=== PATIENT | female | born 1940 | race Caucasian/White ===

== ENCOUNTER 2022-05-16 10:49 | Emergency (ER) | payer OTHER ==
--- OUTSIDE RECORDS SUMMARY | 2022-05-16 10:52 | XMS REPORT | Continuity of Care Document ---
:[address] [facility] Address [address] [place] [address] Dr. Tirado [address] [place] [id number] Care Team Providers Name Role Phone [email or web address] Attending Clinician Unavailable [email or web address] Admitting Clinician Unavailable Payers Payer Name Policy Type Policy Number Effective Date Expiration Date S elly MEDICARE B-[place]: [id number] 2003 [employer] 00:00:00 [employer] (INDEMNITY) [id number] 2002 00:00:00 Problems This patient has no known problems. Allergies, Adverse Reactions, Alerts Allergy Allergy Status Severity Reaction(s) Onset Inactive Treating Comm ents Source Name Type Date Date Clinician Erythrom Allergy Active [facility] Neomycin Allergy [facility] Nickel Allergy Active [facility] Medications Ordered Filled Start Stop Current Ordering Indication Dosage Frequency Signature Comments Components Source Medication Medication Date Date Medication? Clinician (SIG) Name Name alprazolam alprazolam No alprazolam [facility] 0.25 mg 0.25 mg 0.25 mg Medica l tablet TAKE tablet TAKE tablet 1 TABLET BY 1 TABLET BY TAKE 1 MOUTH TWICE MOUTH TWICE TABLET BY DAILY DAILY MOUTH NEEDED NEEDED TWICE DAILY NEEDED amlodipine amlodipine No amlodipine [facility] 5 mg tablet 5 mg tablet 5 mg M edical tablet esomeprazol esomeprazol No esomeprazo [facility] e magnesium e magnesium le M edical 40 mg 40 mg magnesium capsule,del capsule,del 40 mg ayed ayed capsule,de release release layed release levothyroxi levothyroxi No levothyrox [facility] ne 50 mcg ne 50 mcg ine 50 mcg Medical tablet tablet tablet rosuvastati rosuvastati No rosuvastat [facility] n 40 mg n 40 mg in 40 mg Medic al tablet TAKE tablet TAKE tablet 1 TABLET BY 1 TABLET BY TAKE 1 MOUTH ONCE MOUTH ONCE TABLET BY DAILY DAILY MOUTH ONCE DAILY sotalol 120 sotalol 120 No sotalol [facility] mg tablet mg tablet 120 mg Med ical tablet sulfamethox sulfamethox No sulfametho [facility] azole 800 azole 800 xazole 800 Medical mg-trimetho mg-trimetho mg-trimeth prim 160 mg prim 160 mg oprim 160 tablet tablet mg tablet tobramycin tobramycin No tobramycin [facility] 0.3 0.3 0.3 Medical %-dexametha %-dexametha %-dexameth sone 0.1 % sone 0.1 % asone 0.1 eye eye % eye drops,suspe drops,suspe drops,susp nsion nsion ension Xarelto 20 Xarelto 20 No Xarelto 20 [facility] mg tablet mg tablet mg tablet Medical TAKE 1 TAKE 1 TAKE 1 TABLET BY TABLET BY TABLET BY MOUTH ONCE MOUTH ONCE MOUTH ONCE DAILY WITH DAILY WITH DAILY WITH EVENING EVENING EVENING MEAL MEAL MEAL Vital Signs Vital Name Observation Time Observation Value Comments Source BP Diastolic 2022-03-20 00:00:00 76 mm[Hg] Edward doshi Height 2022-03-20 00:00:00 68 [in_i] Edward doshi BMI (Body Mass Index) 2022-03-20 00:00:00 20.7 kg/m2 [facility] BP Systolic 2022-03-20 00:00:00 120 mm[Hg] Edward doshi Body Weight 2022-03-20 00:00:00 2176 [oz_av] Edward doshi Procedures Procedure Date / Time Performed Performing Clinician [facility] e CT, brain, w/o contrast 2022-03-20 00:00:00 [facility] Medical electromyogram + nerve 2022-03-20 00:00:00 [facility] conduction study CT, lumbar spine, w/o 2022-03-20 00:00:00 [facility] contrast Plan of Care Planned Activity Planned Date Details Comments Source Diagnostic Test 2022-03-20 HbA1c (hemoglobin A1c), [facility] Pending 00:00:00 blood [code = HbA1c (hemoglobin A1c), blood] Diagnostic Test 2022-03-20 vitamin B12 + folate, [facility] Pending 00:00:00 serum or blood [code = vitamin B12 + folate, serum or blood] Diagnostic Test 2022-03-20 vitamin B6 (pyridoxine), [facility] Pending 00:00:00 plasma [code = vitamin B6 (pyridoxine), plasma] Diagnostic Test 2022-03-20 TSH, serum or plasma [facility] Pending 00:00:00 [code = TSH, serum or plasma] Diagnostic Test 2022-03-20 protein electrophoresis [facility] Pending 00:00:00 panel, serum or plasma [code = protein electrophoresis panel, serum or plasma] Diagnostic Test 2022-03-20 BMP, serum or plasma [facility] Pending 00:00:00 [code = BMP, serum or plasma] Encounters Start End Encounter Admission Attending Care Care Encounter Source Date/Time Date/Time Type Type Clinicians Facility Department ID 2022-04-19 2022-04-19 Outpatient [facility]_T[facility] PRIV PRIV [id number] [facility] 00:00:00 00:00:00 in_M [id number] Medica l 2022-03-20 2022-03-20 Outpatient [facility] PRIV PRIV [id number] [facility] 00:00:00 00:00:00 in_M [id number] Medica l 2022-03-20 2022-03-20 [facility] Elena [facility] 110 [facility] 00:00:00 00:00:00 Gertrude Easton FIRST AID TRAINER: [id number] GC_TNC_[facility]out [facility], Office* [address], [place] [address] , Ph. 2022-03-19 2022-03-19 Outpatient [facility] PRIV PRIV [id number] [facility] 00:00:00 00:00:00 in_M [id number] Medica l Results This patient has no known results.
[2022-05-16] MEDS ORDERED: NA CHLORIDE 0.9% 1,000 ML ONE (11:29)
[2022-05-16] MEDS ORDERED: NOREPINEPHRINE BITARTRATE/D5W 4 MG/250 ML BAG IV ONE ×2 (11:29→20:16)
[2022-05-16 11:30] LABS: Absolute Lymphocytes (CBC) 0.7 K/uL (0.7-4.9); Hematocrit 30.1 % (36.0-45.0); Lymphocytes % 11.5 % (15.3-44.8); RBC Red Blood Cell Count 2.77 M/uL (3.86-4.86)
[2022-05-16] MEDS ORDERED: THIAMINE 200 MG/2 ML INJ ONE (11:31)
[2022-05-16 11:36] LABS: MCV 108.8 fL (80-100)
[2022-05-16 11:54] LABS: Protime INR 11.05
[2022-05-16 12:09] LABS: Albumin 2.6 g/dL (3.4-5.0); Bilirubin Total 2.8 mg/dL (0.2-1.0); Potassium 3.5 mmol/L (3.5-5.1); Protein, Total 5.1 g/dL (6.4-8.2)
[2022-05-16 12:20] LABS: Blood Morphology Comment NOTED (NOT SEEN); Burr Cells 1+; Macrocytosis 1+; Platelet Estimate ADEQ; White Blood Cell Scan OK (OK)
[2022-05-16 12:22] LABS: Urine Blood Trace-lysed (Negative); Urine Glucose Negative (Negative); Urine Protein 3+ (Negative); Urine Specific Gravity >=1.030 (1.005-1.030); Urine pH 5.5 (5.0-7.0)
--- NOTE | 2022-05-16 12:36 | ER ---
Nurse's Notes [facility] Name: Ale Virgen Age: 81 yrs Sex: Female : 1940 Arrival Date: 05/16/2022 Time: 10:50 Bed 3 Private MD: Diagnosis: Nonspecific reactive hepatitis;Hypotension, unspecified;Hypoglycemia, unspecified;Alcoholism Presentation: 05/16 10:51 Chief complaint: EMS states: Pt from home, dx w/ COVID on Thursday, family called EMS for AMS, pt found to be responsive to verbal stimuli, oriented x 1, room air Spo2 79%, improved to 96% NRB mask, BGL 25, d10 given, pt awake and alert oriented x 3 upon arrival to ED, BP low at 60s/40s, 18 G IV to L wrist w/ fluid bolus infusing. Coronavirus screen: Vaccine status: Patient reports receiving the 2nd dose of the covid vaccine. Ebola Screen: No symptoms or risks identified at this time. Initial Sepsis Screen: Does the patient meet any 2 criteria? Systolic BP < 90 mmHg. Mean Arterial Pressure (MAP) < 65. Does the patient have a suspected source of infection? Yes: Productive cough/pneumonia. Risk Assessment: Do you want to hurt yourself or someone else? Patient reports no desire to harm self or others. Onset of symptoms was May 16, 2022. 10:51 Acuity: АЛЕКСАНДР 2 ph 10:51 Method Of Arrival: EMS: [facility] Triage Assessment: 11:10 General: Appears in no apparent distress. Behavior is calm, cooperative, Reports chills ph for fever for > 3 days. Pain: Denies pain. Neuro: Level of Consciousness is awake, obeys commands, lethargic, Oriented to person, place, time, situation, Speech is normal. Cardiovascular: Capillary refill is sluggish in bilateral Rhythm is atrial pacer. Respiratory: Reports shortness of breath cough that is Airway is patent Respiratory effort is even, unlabored, Respiratory pattern is regular, symmetrical. GI: No signs and/or symptoms were reported involving the gastrointestinal system. Derm: Skin is fragile, is thin, Skin is pale, Skin temperature is cold. Musculoskeletal: Circulation, motion, and sensation intact. Range of motion: intact in all extremities. Historical: - Allergies: 11:09 Cephalexin Monohydrate; ph 11:09 erythromycin base; ph 11:09 ezetimibe; ph 11:09 Neomycin Sulfate; ph - Home Meds: 11:17 Nexium 40 mg Oral cpDR 1 cap once daily [Active]; levothyroxine 50 mcg cap 1 cap once ph daily [Active]; Betapace 120 mg oral tab 1 tab 2 times per day [Active]; Lasix 40 mg Oral tab 1 tab once daily [Active]; potassium chloride 10 mEq Oral cpER [Active]; Crestor 40 mg oral tab 1 tab once daily [Active]; Xanax 0.25 mg Oral tab 1 tab twice a day [Active]; amlodipine 5 mg tab 1 tab once daily [Active]; Vitamin D Oral [Active]; - PMHx: 11:09 Atrial Fib; pacemaker; Hypothyroidism; ph - PSHx: 11:17 Thyroidectomy; ph - Immunization history:: Adult Immunizations unknown. - Social history:: Smoking status: unknown Patient uses alcohol, 7-8 glasses of wine per night. Screenin:12 [facility] ED Fall Risk Assessment (Adult) History of falling in the last 3 months, ph including since admission No falls in past 3 months (0 pts) Confusion or Disorientation Yes (5 pts) Intoxicated or Sedated No (0 pts) Impaired Gait Yes (1 pt) Mobility Assist Device Used Yes (1 pt) Altered Elimination No (0 pt) Score/Fall Risk Level 3 or more points = High Risk Oriented to surroundings, Maintained a safe environment, Educated pt \T\ family on fall prevention, incl call for assistance when getting out of bed, Hourly rounding (assess needs \T\ fall precautionary measures) done, Used ambulatory aids as needed (educated on \T\ assisted with), Remained w/in arm's length of patient and in sight while toileting, Remained with patient while ambulating. Abuse screen: Denies threats or abuse. Denies injuries from another. Nutritional screening: No deficits noted. Tuberculosis screening: No symptoms or risk factors identified. Assessment: 11:26 Reassessment: Finish EMS NS 1 liter bolus then administer another liter for a total of hb [address] Alcantara. 11:27 Reassessment: Dr. Alcantara at bedside for cental line placement. hb 12:17 Reassessment: Patient appears in no apparent distress at this time. Patient and/or ph family updated on plan of care and expected duration. Pain level reassessed. Pt awake and alert, central line placed by Dr Alcantara, also inserted temperature monitor mccullough and core temp remains low at 89.0, romain hugger blanket in place. NRB mask removed and pt placed on NC \T\ 4L/min w/ Spo2 at 94%. 14:05 Reassessment: Patient appears in no apparent distress at this time. Patient and/or ph family updated on plan of care and expected duration. Pain level reassessed. Patient is alert, oriented x 3, equal unlabored respirations, skin warm/dry/pink. Pt resting comfortably, romain hugger remains in place w/ core temp improved to 92.2, levophed infusing, awaiting acceptance at [facility]. 15:30 Reassessment: Patient appears in no apparent distress at this time. No changes from previously documented assessment. Patient and/or family updated on plan of care and expected duration. Pain level reassessed. Patient is alert, oriented x 3, equal unlabored respirations, skin warm/dry/pink. 16:30 Reassessment: Patient appears in no apparent distress at this time. No changes from ph previously documented assessment. Patient and/or family updated on plan of care and expected duration. Pain level reassessed. Awaiting acceptance at [facility]. Vital Signs: 10:51 BP 69 / 34; Pulse 60; Resp 20; Temp 91.2(O); Pulse Ox 100% on 100% Non-rebreather mask; ph Weight 63.5 kg; Height 5 ft. 8 in. (172.72 cm); 11:31 BP 79 / 44; Pulse 60; Resp 17; Pulse Ox 99% on Non-rebreather mask; hb 12:16 BP 93 / 49; Pulse 60; Resp 20; Temp 88.9(C); Pulse Ox 96% on 4 lpm NC; ph 12:50 BP 107 / 77; Pulse 60; Resp 14; Temp 90.0; Pulse Ox 94% on 4 lpm NC; ph 13:15 BP 95 / 45; Pulse 60; hb 13:30 BP 77 / 39; Pulse 59; hb 14:00 BP 103 / 52; Pulse 60; Resp 15; Pulse Ox 94% on 4 lpm NC; hb 14:22 BP 113 / 67; Pulse 60; Resp 12; Temp 93.0; Pulse Ox 98% on 4 lpm NC; ph 15:21 BP 97 / 51; Pulse 63; Resp 12; Temp 94.3; Pulse Ox 98% on 4 lpm NC; ph 16:00 BP 107 / 54; Pulse 74; Resp 18; Pulse Ox 98% 4 lpm ; ph 16:30 BP 102 / 55; Pulse 74; Resp 18; Pulse Ox 97% on 4 lpm NC; ph 17:00 BP 103 / 54; Pulse 74; Resp 14; Temp 96.8; Pulse Ox 98% on 4 lpm NC; ph 17:30 BP 105 / 85; Pulse 82; Resp 19; Temp 97.2(C); Pulse Ox 97% on 4 lpm NC; ph 18:00 BP 117 / 59; Pulse 76; Resp 15; Temp 97.5; Pulse Ox 97% on 4 lpm NC; ph 18:30 BP 105 / 72; Pulse 76; Resp 16; Temp 98.2; Pulse Ox 100% on 4 lpm NC; ph 18:59 BP 116 / 53; Pulse 73; Resp 14; Temp 98.7; ph 20:18 BP 97 / 54; Pulse 74; Resp 20 S; Temp 99.5(C); Pulse Ox 99% on 2 lpm NC; aa9 20:25 BP 97 / 54; aa9 21:43 BP 87 / 44; Pulse 77; Resp 16; Pulse Ox 99% on R/A; kd3 22:00 BP 93 / 47; Pulse 75; Resp 17; Temp 99.9(C); Pulse Ox 97% on 4 lpm NC; kd3 22:42 BP 107 / 48; Pulse 76; Resp 19; Temp 99.9(C); Pulse Ox 100% on 4 lpm NC; kd3 10:51 Body Mass Index 21.29 (63.50 kg, 172.72 cm) ph Vitals: 12:16 Cardiac Rhythm Assessment Paced. ph ED Course: 10:50 Patient arrived in ED. em1 10:53 Mxa Alcantara DO is Attending Physician. ms3 11:09 Triage completed. ph 11:10 Arm band placed on Patient placed in an exam room, on a stretcher, on oxygen, on ph rn cardiac, on pulse oximetry. 11:12 Patient has correct armband on for positive identification. Placed in gown. Bed in low ph position. Call light in reach. Side rails up X2. Client placed on continuous cardiac and pulse oximetry monitoring. NIBP monitoring applied. Door closed. Noise minimized. Warm blanket given. 11:20 Maintain EMS IV. Dressing intact. Good blood return noted. Site clean \T\ dry. Gauge \T\ ph site: 18G L wrist. 11:21 Inserted saline lock: 22 gauge in right forearm, using aseptic technique. Blood hb collected. 11:50 Assisted provider with central line placement. Set up central line tray. Triple lumen ph line placed in left internal jugular. Line placed by Max Alcantara DO Placement verified by blood return, Dressed with Tegaderm, Patient tolerated well. Before procedure, did Practitioner(s) obtain informed consent? Yes. Patient \T\ family education about procedure, CLABSI prevention and S/S of infection? Yes. Time-out/Briefing performed prior to start of procedure? Yes. Was handwashing/sanitizing done immediately prior to procedure? Yes. Was patient positioned to in a way to prevent air embolism? Yes. Was procedure site sterilized? Yes, with chlorhexidine. Was the site allowed to dry? Yes. Was local anesthetic and/or sedation utilized? Yes. During the procedure, did the Practitioner(s) maintain a sterile field? Yes. Were unused ports clamped during insertion? Yes. Was a 2nd qualified MD obtained after 3 unsuccessful insertion attempts? N/A. Was blood aspirated from each lumen? Yes. After the procedure, did the Practitioner(s) clean the site and apply a sterile dressing? Yes. 12:05 Mccullough cath inserted, using sterile technique, 16 Fr., by ED staff, balloon inflated, to ph gravity drainage, urine specimen collected. returned ebony urine. Criticore Mccullough placed. 12:14 Kelle Cedeño, LC is Primary Nurse. ph 12:26 CXR XRAY In Process Unspecified. EDMS 12:49 initiated a transfer with Blair Campo Rn from the [facility] Transfer [facility]. eb 13:14 patient's son called to request that we try sending his mother to [facility] in the [facility] center. 13:18 initiated a transfer with Katherine from the [facility] transfer center at the request of eb the patient's family. 13:26 patient has been denied at [facility] due to being at capacity. eb 14:09 Liver Only US In Process Unspecified. EDMS 14:45 connected the hospitalist and the assistant to the director hotel reservation agent for [facility] with Dr. Maricruz bacon for patient transfer consultation. 19:32 Patient transferred, IV remains in place. ph 19:41 Called [facility] transfer center to get an update regarding an ICU bed, spoke with Scarlett. wm She stated that they are still waiting for a bed to be released, once released she will call with acceptance info. 21:26 Scarlett called back to give update that they will for sure have a bed available tonight, wm just doesn't have a specific time yet. 21:51 Pt accepted for transfer by [facility] \T\ 1453 per Scarlett Escobar. wm Administered Medications: 11:27 Drug: NS 0.9% 1000 ml Route: IV; Rate: 1000 ml; Site: left forearm; hb 11:41 Follow up: IV Status: Completed infusion; IV Intake: 1000ml hb 11:41 Drug: Thiamine 100 mg Route: IV; Rate: calculated rate; Site: right forearm; hb 12:00 Follow up: Response: No adverse reaction; IV Status: Completed infusion ph 12:46 Drug: Levophed (norepinephrine) 0.1 mcg/kg/min {Note: administered at 5 mcg/min via ph central line.} Route: IV; Rate: calculated rate; Site: left jugular; 13:35 Follow up: Rate change 10 mcg/min ph 20:25 Follow up: BP 97 / 54; Rate change 6.35 mcg/min; IV Status: Infusion continued aa9 21:42 Follow up: Rate change 7 mcg/min kd3 22:39 Drug: D50W 50 ml Route: IVP; Site: left jugular; kd3 23:07 Drug: D5-1/2 NS with KCl 10 mEq/L 1000 ml Route: IV; Rate: 100 ml/hr; Site: right kd3 antecubital; Medication: 11:12 VIS not applicable for this client. ph Point of Care Testing: Blood Glucose: 10:50 Blood Glucose: 165 mg/dL; hb Ranges: Intake: 11:41 IV: 1000ml; Total: 1000ml. hb Outcome: 12:35 ER care complete, transfer ordered by MD. ms3 23:07 Transferred by ground EMS kd3 23:07 Condition: stable 23:07 Discharge instructions given to patient, family, Instructed on the need for transfer. 23:09 Patient left the ED. kd3 Signatures: Dispatcher [employer] Rupesh [place] em1 Kelle Cedeño, RN RN Catalina Bennett RN RN Sada Lazo Marcus, DO DO ms3 Tila Tan Gudelia Patel RN RN kd3 Abigail Reece RN RN aa9 Corrections: (The following items were deleted from the chart) 11:35 11:15 Blood Glucose: Blood Glucose Cysfjbh=583 mg/dL. [facility] 21:09 19:41 Called [facility] transfer center to get an update regarding an ICU bed, spoke with wm Pantoja. She stated that they are still waiting for a bed to be released, once released she will call with acceptance.
--- NOTE | 2022-05-16 12:36 | EDPHYS ---
Physician Documentation [facility] Name: Ale Virgen Age: 81 yrs Sex: Female : 1940 Arrival Date: 05/16/2022 Time: 10:50 Bed 3 Private MD: ED Physician Max Alcantara HPI: 05/16 12:07 This 81 yrs old Female presents to ER via EMS with complaints of Altered mental status. ms3 12:07 81-year-old female presents via [facility] for altered mental status. On EMS ms3 arrival patient's blood glucose level was found to be 25, oxygen saturations were 79% on room air, and hypotensive. Patient was given 250 mL of D10 and 150 mL of NS was administered while in route. EMS noted patient to be alert and oriented x1 with improvement to A\T\O x3. Patient notes that she had a positive home COVID test on Thursday. Patient denies pain at this time. Patient denies shortness of breath.. Historical: - Allergies: 11:09 Cephalexin Monohydrate; ph 11:09 erythromycin base; ph 11:09 ezetimibe; ph 11:09 Neomycin Sulfate; ph - Home Meds: 11:17 Nexium 40 mg Oral cpDR 1 cap once daily [Active]; levothyroxine 50 mcg cap 1 cap once ph daily [Active]; Betapace 120 mg oral tab 1 tab 2 times per day [Active]; Lasix 40 mg Oral tab 1 tab once daily [Active]; potassium chloride 10 mEq Oral cpER [Active]; Crestor 40 mg oral tab 1 tab once daily [Active]; Xanax 0.25 mg Oral tab 1 tab twice a day [Active]; amlodipine 5 mg tab 1 tab once daily [Active]; Vitamin D Oral [Active]; - PMHx: 11:09 Atrial Fib; pacemaker; Hypothyroidism; ph - PSHx: 11:17 Thyroidectomy; ph - Immunization history:: Adult Immunizations unknown. - Social history:: Smoking status: unknown Patient uses alcohol, 7-8 glasses of wine per night. ROS: 12:07 Constitutional: Negative for fever, and chills. Neck: Negative for injury, pain, and ms3 swelling, Cardiovascular: Negative for chest pain, and palpitations. Respiratory: Negative for shortness of breath, cough, wheezing, and pleuritic chest pain, Abdomen/GI: Negative for abdominal pain, nausea, vomiting, diarrhea, and constipation, MS/Extremity: Negative for injury and deformity. Exam: 10:51 ECG was reviewed by the Attending Physician. ms3 12:07 Constitutional: This is a well developed, well nourished patient who is awake, alert, ms3 and in no acute distress. Head/Face: Normocephalic, atraumatic. Neck: Trachea midline, no cervical lymphadenopathy. Supple, full range of motion without nuchal rigidity, or vertebral point tenderness. No Meningismus. Chest/axilla: Normal chest wall appearance and motion. Nontender with no deformity. Cardiovascular: Regular rate and rhythm with a normal S1 and S2. No gallops, murmurs, or rubs. Normal PMI, no JVD. No pulse deficits. Respiratory: Lungs have equal breath sounds bilaterally, clear to auscultation and percussion. No rales, rhonchi or wheezes noted. No increased work of breathing, no retractions or nasal flaring. Abdomen/GI: Soft, non-tender, with normal bowel sounds. No distension or tympany. No guarding or rebound. No evidence of tenderness throughout. Skin: Warm, dry with normal turgor. Normal color with no rashes, no lesions, and no evidence of cellulitis. Vital Signs: 10:51 BP 69 / 34; Pulse 60; Resp 20; Temp 91.2(O); Pulse Ox 100% on 100% Non-rebreather mask; ph Weight 63.5 kg; Height 5 ft. 8 in. (172.72 cm); 11:31 BP 79 / 44; Pulse 60; Resp 17; Pulse Ox 99% on Non-rebreather mask; hb 12:16 BP 93 / 49; Pulse 60; Resp 20; Temp 88.9(C); Pulse Ox 96% on 4 lpm NC; ph 12:50 BP 107 / 77; Pulse 60; Resp 14; Temp 90.0; Pulse Ox 94% on 4 lpm NC; ph 13:15 BP 95 / 45; Pulse 60; hb 13:30 BP 77 / 39; Pulse 59; hb 14:00 BP 103 / 52; Pulse 60; Resp 15; Pulse Ox 94% on 4 lpm NC; hb 14:22 BP 113 / 67; Pulse 60; Resp 12; Temp 93.0; Pulse Ox 98% on 4 lpm NC; ph 15:21 BP 97 / 51; Pulse 63; Resp 12; Temp 94.3; Pulse Ox 98% on 4 lpm NC; ph 16:00 BP 107 / 54; Pulse 74; Resp 18; Pulse Ox 98% 4 lpm ; ph 16:30 BP 102 / 55; Pulse 74; Resp 18; Pulse Ox 97% on 4 lpm NC; ph 17:00 BP 103 / 54; Pulse 74; Resp 14; Temp 96.8; Pulse Ox 98% on 4 lpm NC; ph 17:30 BP 105 / 85; Pulse 82; Resp 19; Temp 97.2(C); Pulse Ox 97% on 4 lpm NC; ph 18:00 BP 117 / 59; Pulse 76; Resp 15; Temp 97.5; Pulse Ox 97% on 4 lpm NC; ph 18:30 BP 105 / 72; Pulse 76; Resp 16; Temp 98.2; Pulse Ox 100% on 4 lpm NC; ph 18:59 BP 116 / 53; Pulse 73; Resp 14; Temp 98.7; ph 20:18 BP 97 / 54; Pulse 74; Resp 20 S; Temp 99.5(C); Pulse Ox 99% on 2 lpm NC; aa9 20:25 BP 97 / 54; aa9 21:43 BP 87 / 44; Pulse 77; Resp 16; Pulse Ox 99% on R/A; kd3 22:00 BP 93 / 47; Pulse 75; Resp 17; Temp 99.9(C); Pulse Ox 97% on 4 lpm NC; kd3 22:42 BP 107 / 48; Pulse 76; Resp 19; Temp 99.9(C); Pulse Ox 100% on 4 lpm NC; kd3 10:51 Body Mass Index 21.29 (63.50 kg, 172.72 cm) ph MDM: 10:54 Patient medically screened. ms3 12:07 Differential Diagnosis: electrolyte abnormality, hypoglycemia, UTI, volume depletion. ms3 12:30 ED course: My Interpretation of CXR; CVL in azygous vein, no PTX. ms3 14:53 ED course: Consideration of hospitalization: Patient transferred to [facility] Discussion of management of care with other providers: Discussed case with Dr. Conrad and Dr. Britton Independent interpretations: respiratory equipment assistant shows normal sinus rhythm, heart rate 61, no ectopy Prescriptions considered but not given: Patient given Levophed, normal saline, vancomycin, cefepime in the emergency department History obtained from [facility] Chronic illnesses impacting care: Hypertension, hypothyroidism Social determinants of health affecting care alcoholism . ED course: Case discussed with Dr. Britton and Dr. Conrad and they recommended vancomycin and cefepime antibiotics be added.. 14:56 Data reviewed: vital signs, nurses notes, lab test result(s), EKG, radiologic studies, ms3 and as a result, I will transfer patient. Counseling: I had a detailed discussion with the patient and/or guardian regarding: the historical points, exam findings, and any diagnostic results supporting the discharge/admit diagnosis, lab results, radiology results, the need to transfer to another facility. 05/16 10:51 Order name: glucometer results - FOR PT WITH NO ID; Complete Time: 22:28 em1 05/16 10:54 Order name: Blood Culture Adult (2) ms3 05/16 10:54 Order name: CBC with Diff; Complete Time: 12:29 ms3 05/16 10:54 Order name: CMP; Complete Time: 12:29 ms3 05/16 10:54 Order name: Lactate w/ 2H reflex if indic.; Complete Time: 12:29 ms3 05/16 10:54 Order name: Protime (+inr); Complete Time: 12:29 ms3 05/16 10:54 Order name: Ptt, Activated; Complete Time: 12:29 ms3 05/16 10:54 Order name: Urine Microscopic Only; Complete Time: 14:44 ms3 05/16 11:37 Order name: CBC Smear Scan; Complete Time: 12:29 EDMS 05/16 12:22 Order name: Urine Dipstick-Ancillary; Complete Time: 12:29 EDMS 05/16 12:57 Order name: SARS-COV-2 Antigen Rapid; Complete Time: 14:44 EDMS 05/16 14:41 Order name: Lactate Sepsis 2 HR Follow-up; Complete Time: 14:44 EDMS 05/16 18:03 Order name: Glucose, Ancillary Testing; Complete Time: 22:28 EDMS 05/16 10:54 Order name: EKG; Complete Time: 10:55 ms3 05/16 10:54 Order name: Accucheck; Complete Time: 11:34 ms3 05/16 10:54 Order name: Cardiac monitoring; Complete Time: 11:11 ms3 05/16 10:54 Order name: EKG - Nurse/Tech; Complete Time: 11:11 ms3 05/16 10:54 Order name: IV Saline Lock - Large Bore; Complete Time: 11:34 ms3 05/16 10:54 Order name: Labs collected and sent; Complete Time: 11:34 ms3 05/16 11:54 Order name: CXR XRAY; Complete Time: 14:44 eb 05/16 12:36 Order name: Liver Only US; Complete Time: 14:44 ms3 05/16 22:43 Order name: Glucose, Ancillary Testing EDMS 05/16 23:05 Order name: Glucose, Ancillary Testing EDMS 05/16 10:54 Order name: O2 Per Protocol; Complete Time: 11:11 ms3 05/16 10:54 Order name: O2 Sat Monitoring; Complete Time: 11:11 ms3 05/16 10:54 Order name: Vital Signs; Complete Time: 11:11 ms3 05/16 11:17 Order name: Misc. Order: Apply bear hugger; Complete Time: 12:19 ms3 EC:51 Rate is 60 beats/min. QRS [place] is Normal. QRS interval is normal. Clinical impression: ms3 Atrial Paced rhythm with prolonged AV conduction. Interpreted by me. Reviewed by me. Administered Medications: 11:27 Drug: NS 0.9% 1000 ml Route: IV; Rate: 1000 ml; Site: left forearm; hb 11:41 Follow up: IV Status: Completed infusion; IV Intake: 1000ml hb 11:41 Drug: Thiamine 100 mg Route: IV; Rate: calculated rate; Site: right forearm; hb 12:00 Follow up: Response: No adverse reaction; IV Status: Completed infusion ph 12:46 Drug: Levophed (norepinephrine) 0.1 mcg/kg/min {Note: administered at 5 mcg/min via ph central line.} Route: IV; Rate: calculated rate; Site: left jugular; 13:35 Follow up: Rate change 10 mcg/min ph 20:25 Follow up: BP 97 / 54; Rate change 6.35 mcg/min; IV Status: Infusion continued aa9 21:42 Follow up: Rate change 7 mcg/min kd3 22:39 Drug: D50W 50 ml Route: IVP; Site: left jugular; kd3 23:07 Drug: D5-1/2 NS with KCl 10 mEq/L 1000 ml Route: IV; Rate: 100 ml/hr; Site: right kd3 antecubital; Point of Care Testing: Blood Glucose: 10:50 Blood Glucose: 165 mg/dL; hb Ranges: Critical Glucose Levels:Adult <50 mg/dl or >400 mg/dl <40 mg/dl or >180 mg/dl Disposition Summary: 05/16/22 12:35 Transfer Ordered Transfer Location: [facility] ms3 Reason: Higher level of care ms3 Condition: Stable ms3 Problem: new ms3 Symptoms: are unchanged ms3 Accepting Physician: Dr Britton(05/16/22 23:09) kd3 Diagnosis - Nonspecific reactive hepatitis ms3 - Hypotension, unspecified ms3 - Hypoglycemia, unspecified ms3 - Alcoholism ms3 Forms: - Medication Reconciliation Form ms3 - SBAR form ms3 Signatures: Dispatcher [employer] EDMS Kelle Cedeño RN RN Catalina Bennett RN RN Max Alcantara, DO DO ms3 Gudelia Patel RN RN kd3 Rachel Peterson MD MD sd2 Abigail Reece RN aa9 Corrections: (The following items were deleted from the chart) 12:18 10:55 Chest Single View+[email or web address].[email or web address] ordered. EDMS EDMS 12:57 12:38 SARS-COV-2 RT PCR+MOL.LAB.BRZ ordered. EDMS EDMS 14:56 12:35 Dr [email or web address] ms3 14:56 14:56 Dr Britton ms3 ms3 23:09 14:56 Dr Britton ms3 kd3
[2022-05-16 12:55] LABS: Urine Bacteria <20 /HPF (<20); Urine RBC None Seen /HPF (None Seen)
[2022-05-16 13:13] LABS: SARS-CoV-2 Antigen Rapid Res Positive (Negative)
--- NOTE | 2022-05-16 13:32 | RAD REPORT ---
EXAM DESCRIPTION: RAD - Chest Single View - 05/16/2022 12:24 pm CLINICAL HISTORY: central line placement COMPARISON: CT chest 07/27/2020 TECHNIQUE: AP portable chest image was obtained 05/16/2022 12:24 pm . FINDINGS: Left jugular central line has been placed. Course of the line is tortuous which matches th e pathway of the left-side jugular vein on the CT study. The tip of the central line terminates at th e jugular vein-brachiocephalic junction. Review of the CT imaging shows that the left jugular vein ta per significantly at its junction with the brachiocephalic vein and the brachiocephalic vein itself i s very small along its entire course. This is possibly due to scarring from 2 lead left subclavian pa cemaker is in place. No left-sided pneumothorax or acute left hemithorax finding. Skin fold artifact overlies the right-si de chest. Nodular density lateral gutter on the right is believed to be a nipple shadow. Patient has chronic interstitial lung disease. Acute lung parenchymal process is not seen. IMPRESSION: Left jugular central line has been placed. The tip of the line is at the jugular - brach iocephalic junction. 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 Further advancement of the line is not likely possible due to the vascular co nstriction.
--- NOTE | 2022-05-16 14:18 | RAD REPORT ---
EXAM DESCRIPTION: US - Liver Only - 05/16/2022 2:07 pm CLINICAL HISTORY: transaminitis COMPARISON: No comparisons TECHNIQUE: Sonographic evaluation of the right upper quadrant was performed as a dedicated liver ult rasound study. FINDINGS: Liver is 14 cm in maximum dimension. No liver capsule nodularity identifiable. There are n o focal liver lesions seen. Liver parenchymal echogenicity is within range of normal. Doppler evaluat ion shows no portal vein abnormality. No ascites of the right upper quadrant. IMPRESSION: No liver abnormality identifiable.
[2022-05-16] MEDS ORDERED: DEXTROSE 10%-WATER 500 ML IV ONE (22:33)
[2022-05-16] MEDS ORDERED: D5.45NS W/KCL 20MEQ 1,000 ML IV ONE (22:43)
[2022-05-17 01:06] VITALS: TEMP 99.9
[2022-05-17 01:07] VITALS: BP 107/48; O2SAT 100
--- NOTE | 2022-05-17 17:40 | EKG ---
Test Date: 2022-05-16 Test Time: 10:51:55 Sheet Metal Assembler: HB MEASUREMENT RESULTS: Intervals: Rate: 60 CO: 230 QRSD: 84 QT: 610 QTc: 610 [place]: P: CO: 230 QRS: -1 T: -11 INTERPRETIVE STATEMENTS: Atrial-paced rhythm with prolonged AV conduction Low voltage QRS Nonspecific ST and T wave abnormality Prolonged QT Abnormal ECG Compared to ECG 05/29/2016 06:42:05 Low QRS voltage now present Sinus rhythm no longer present Possible ischemia no longer present ST (T wave) deviation still present Electronically Signed On 05-17-22 17:39:13 SKIP LOADER by Lew Mays
== END 2022-05-16 23:09 | disposition short-term general hospital (02) ==
LOC: ER 10:49
PROC: 05HN33Z Insertion of Infusion Device into Left Internal Jugular Vein, Percutaneous Approach (ICD-10-PCS; principal; 2022-05-16)
DX: K75.2 Nonspecific reactive hepatitis (principal); I95.9 Hypotension, unspecified; E16.2 Hypoglycemia, unspecified; F10.20 Alcohol dependence, uncomplicated; U07.1 COVID-19; I48.91 Unspecified atrial fibrillation; Z95.0 Presence of cardiac pacemaker; Z88.3 Allergy status to other anti-infective agents; Z88.8 Allergy status to other drugs, medicaments and biological substances
CPT/HCPCS: 93005; 87040 ×2; 85025; 36415; 85610; 82947 ×4; 83605 ×2; 85730; 80053; 71045; 76705; 51702; 99285; 87811; 36556; J3411; J7030; 81003; 81015